=== PATIENT | female | born 1970 ===

== ENCOUNTER 2024-05-06 14:27 | Emergency (ER) | payer OTHER, SELFPAY ==
[2024-05-06 14:31] VITALS: BMI 36.6
--- NOTE | 2024-05-06 14:32 | ECG_ITS ---
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 Measurements Intervals [place] Rate: 69 P: 33 [place]: 160 QRS: 43 QRSD: 90 T: 53 QT: 392 QTc: 421 Interpretive Statements SINUS RHYTHM No previous ECG available for comparison Electronically Signed On 05-06-2024 19:11:53 CDT by Yissel Gee M.D. [id number]
--- NOTE | 2024-05-06 14:49 | XRR_ITS ---
PROCEDURE INFORMATION: Exam: XR Chest Exam date and time: 05/06/2024 3:06 PM Age: 53 years old Clinical indication: Pain; Chest pressure; Additional info: Chest pain TECHNIQUE: Imaging protocol: Radiologic exam of the chest. Views: 1 view. COMPARISON: No relevant prior studies available. FINDINGS: Lungs: Bibasilar atelectasis versus minimal infiltrate. Pleural spaces: Unremarkable. No pleural effusion. No pneumothorax. Heart/Mediastinum: Cardiomegaly and mild pulmonary vascular congestion. Bones/joints: Unremarkable. XR/XR chest 1V portable [id number] IMPRESSION: 1. Cardiomegaly and mild pulmonary vascular congestion. 2. Bibasilar atelectasis versus minimal infiltrate.
[2024-05-06 15:33] LABS: Basophils % 0.5 %; Eosinophils # 0.1 10^3/uL (0.0-0.8); Eosinophils % 2.3 %; Hematocrit 40.1 % (36-47); Lymphocytes # 1.8 10^3/uL (0.8-4.8); Lymphocytes % 31.5 %; Mean Corpuscular HGB Conc 31.2 g/dL (30-55); Mean Corpuscular Hemoglobin 26.9 pg (27-33); Mean Corpuscular Volume 86.2 fl (85-98); Mean Platelet Volume 12.2 fL (7.4-10.4); Monocytes # 0.5 10^3/uL (0.2-0.9); Monocytes % 8.4 %; Neutrophils # 3.25 10^3/uL (1.8-7.7); Neutrophils % 56.9 %; Nucleated Red Blood Cells % 0 %; Platelet Count 227 10^3/cmm (157-399); Red Blood Count 4.65 10^6/uL (3.85-5.65); White Blood Count 5.71 10^3/uL (3.29-11.43)
--- NOTE | 2024-05-06 15:33 | W.ED.CHESTPA ---
HPI - Chest Pain General: Chief Complaint: Chest Pain Stated Complaint: Chest Pain and SOB Time Seen by Provider: 05/06/24 15:19 History of Present Illness: 53-year-old woman with a history of obesity and prediabetes who presents emergency room with left-sided chest pain, cough and chills with subjective fevers. This is been going on for about 5 days now. She been more short of breath. No cardiac history. No smoking history. No COPD history. No altered mental status. No focal motor deficits. No nausea or vomiting. No abdominal pain. Review of Systems Narrative: Constitutional symptoms: Negative except as documented in HPI. Skin symptoms: Negative except as documented in HPI. Eye symptoms: Negative except as documented in HPI. ENMT symptoms: Negative except as documented in HPI. Respiratory symptoms: Negative except as documented in HPI. Cardiovascular symptoms: Negative except as documented in HPI. Gastrointestinal symptoms: Negative except as documented in HPI. Genitourinary symptoms: Negative except as documented in HPI. Musculoskeletal symptoms: Negative except as documented in HPI. Neurologic symptoms: Negative except as documented in HPI. Psychiatric symptoms: Negative except as documented in HPI. Endocrine symptoms: Negative except as documented in HPI. Physical Exam Narrative: EXAM NARRATIVE: General: Alert, no acute distress. Skin: Warm, dry. Head: Normocephalic, atraumatic. Neck: Supple, trachea midline. Eye: Extraocular movements are intact. Ears, nose, mouth and throat: mucosa moist. Cardiovascular: Regular, Normal peripheral perfusion. Respiratory: Lungs are clear to auscultation, respirations are non-labored, breath sounds are equal, Symmetrical chest wall expansion. Gastrointestinal: Soft, Nontender, Non distended Musculoskeletal: Normal ROM, no deformity. Neurological: Alert and oriented, No focal neurological deficit observed. Psychiatric: Cooperative, appropriate mood & affect. Course Vital Signs: Vital signs: Vital Signs Pulse Rate 72 05/06/24 15:42 Respiratory Rate 17 05/06/24 15:42 Blood Pressure 162/104 05/06/24 15:42 Pulse Oximetry 97 05/06/24 15:42 Oxygen Delivery Me thod Room Air 05/06/24 15:42 MDM - Chest Pain Medical Decision Making Differential diagnosis for patient with chest pain includes but is not limited to and based on the above HPI, review of systems and physical exam: Pneumonia. unstable angina. angina. Acute coronary syndrome / [place]. Pulmonary embolism. Costochondritis / musculoskeletal. Pleurisy. Pericarditis. Esophageal spasm. Pancreatis. Cholecystitis. Orders placed to evaluate differential diagnosis based on the above differential, HPI and physical exam Chest x-ray: No acute process. No infiltrate. No pneumothorax. This was reviewed and interpreted by myself the ER physician. Lab Review: Laboratory results were reviewed and interpreted by myself the emergency room physician. White count is 5. BUN and creatinine are 13 and 0.6. Troponin is negative. From history with her having chills and possible fevers and cough with some chest pain and will treat her for bronchitis and possible early community acquired bacterial pneumonia. I reviewed the patient's medical record. Reexamination: Patient remained stable. No increased work of breathing. No altered mental status. No focal motor deficits. Assessment and plan: Acute bronchitis Noncardiac chest pain ?IV doxycycline and IV Decadron in the emergency room. - Discharged home - Discussed findings and plan with patient. Answered any questions. - All laboratory values were reviewed and interpreted personally by myself, the ER physician - All imaging was reviewed and interpreted personally by myself, the ER physician. - Evaluation and treatment of this problem were appropriate in the emergency setting Lab Data 05/06/24 15:26 05/06/24 15:26 Laboratory Results WBC 5.71 10^3/uL (3.29-11.43) 05/06/24 15: RBC 4.65 10^6/uL (3.85-5.65) 05/06/24 15:26 Hgb 12.50 g/dL (11.27-16.99) 05/06/24 15: Hct 40.1 % (36-47) 05/06/24 15:26 MCV 86.2 fl (85-98) 05/06/24 15: MCH 26.9 pg (27-33) L 05/06/24 15: MCHC 31.2 g/dL (30-55) 05/06/24 15:26 RDW 15.0 % (12.1-15.1) 05/06/24 15:26 Plt Count 227 10^3/cmm (157-399) 05/06/24 15: MPV 12.2 fL (7.4-10.4) H 05/06/24 15:26 Neut % (Auto) 56.9 % 05/06/24 15:26 Lymph % (Auto) 31.5 % 05/06/24 15:26 [place] % (Auto) 8.4 % 05/06/24 15:26 Eos % (Auto) 2.3 % 05/06/24 15:26 Baso % (Auto) 0.5 % 05/06/24 15:26 Neut # (Auto) 3.25 10^3/uL (1.8-7.7) 05/06/24 15:26 Lymph # (Auto) 1.8 10^3/uL (0.8-4.8) 05/06/24 15:26 [place] # (Auto) 0.5 10^3/uL (0.2-0.9) 05/06/24 15: Eos # (Auto) 0.1 10^3/uL (0.0-0.8) 05/06/24 15:26 Baso # (Auto) 0.0 10^3/uL (0.0-0.1) 05/06/24 15:26 Nucleated RBC % (auto) 0 % 05/06/24 15: Nucleated RBCs # 0.0 /100WBC 05/06/24 15:26 Sodium 140 mmol/L (136-145) 05/06/24 15:26 Potassium 4.1 mmol/L (3.5-5.1) 05/06/24 15:26 Chloride 103 mmol/L (98-107) 05/06/24 15: Carbon Dioxide 26 mmol/L (22-29) 05/06/24 15:26 Anion Gap 15.1 (5-19) 05/06/24 15:26 BUN 13 mg/dL (6-20) 05/06/24 15:26 Creatinine 0.6 mg/dL (0.5-0.9) 05/06/24 15:26 GFR Calculation 105.0 mL/min (90-130) 05/06/24 15:26 Glucose 96 mg/dL (65-115) 05/06/24 15:26 Calculated Osmolality 290 mOsm/kg (285-295) 05/06/24 15:26 Calcium 9.1 mg/dL (8.5-10.5) 05/06/24 15:26 Total Bilirubin 0.4 mg/dL (0.15-1.2) 05/06/24 15:26 AST 12 U/L (0-32) 05/06/24 15:26 ALT 18 U/L (0-33) 05/06/24 15:26 Alkaline Phosphatase 83 U/L (35-105) 05/06/24 15:26 Troponin T Baseline < 6 ng/L (0-10) 05/06/24 15:26 Total Protein 7.2 g/dL (6.6-8.7) 05/06/24 15:26 Albumin 4.2 g/dL (3.5-5.2) 05/06/24 15:26 Globulin 3.0 g/dL (1.3-4.6) 05/06/24 15:26 Lipase 25 U/L (13-60) 05/06/24 15:26 Urine Color Yellow (Yellow) 05/06/24 15:38 Urine Appearance Slightly cloudy (CLEAR) 05/06/24 15:38 Urine pH 7 (5-7) 05/06/24 15:38 Ur Specific [place] 1.010 (1.005-1.030) 05/06/24 15:38 Urine Protein Neg (Negative) 05/06/24 15:38 Urine Glucose (UA) Norm (Normal) 05/06/24 15:38 Urine Ketones Negative (Negative) 05/06/24 15:38 Urine Blood Neg (Negative) 05/06/24 15:38 Urine Nitrate Negative (Negative) 05/06/24 15:38 Urine Bilirubin Neg (Negative) 05/06/24 15:38 Urine Urobilinogen 1 mg/dL (Negative) H 05/06/24 15:38 Ur Leukocyte Esterase Negative (Negative) 05/06/24 15:38 All radiology interpretation(s) finalized by discharge Discharge Plan Discharge Patient Disposition: Home Clinical Impression: Non-cardiac chest pain Acute bronchitis Qualifiers: Bronchitis organism: unspecified organism Qualified Code(s): J20.9 - Acute bronchitis, unspecified Condition: Stable Prescriptions: New dexamethasone 6 mg tablet 6 mg PO DAILY 5 Days Qty: 5 0RF doxycycline monohydrate 100 mg capsule 100 mg PO BID 10 Days Qty: 20 0RF Discharge Orders: Discharge ED (Routine); Ordered 05/06/24 Ordered By: Gin Lamb Discharge Diet: Usual diet Discharge Activity: Increase activity as tolerated Patient Instructions: Acute Bronchitis (ED) Activity Restrictions/Additional Instructions: Thank you for choosing [facility] for your healthcare needs today. Please realize this is an emergency room and that we are providing you with a medical screening exam and this may not be complete and all inclusive of all the testing and or work up that you may need to determine your ailment or severity of your illness. You have been screened and evaluated and felt safe for discharge. Health conditions do change or evolve sometimes and as such it is important that you follow up with your Primary Doctor to be re checked, 3-5 days is a general good time frame for follow up. You are always welcome to return to the ED for re assessment if your symptoms are worsening or you have new concerns Coding Level of Care Code ED [employer] Service Director for [place]
[2024-05-06 15:42] VITALS: BP 162/104; PULSE 72; RESP 17; O2SAT 97
[2024-05-06 15:47] LABS: Add Urine Microscopic? NO; Charge for UA Resulting for Rev
[2024-05-06 15:51] LABS: Alanine Aminotransferase 18 U/L (0-33); Albumin Level 4.2 g/dL (3.5-5.2); Alkaline Phosphatase 83 U/L (35-105); Anion Gap 15.1 (5-19); Aspartate Amino Transferase 12 U/L (0-32); Blood Urea Nitrogen 13 mg/dL (6-20); Calcium 9.1 mg/dL (8.5-10.5); Carbon Dioxide 26 mmol/L (22-29); Chloride 103 mmol/L (98-107); Creatinine Clr Calc Pharmacy 146.6849; Glucose 96 mg/dL (65-115); Lipase 25 U/L (13-60); Osmolality Calculated 290 mOsm/kg (285-295); Potassium 4.1 mmol/L (3.5-5.1); Sodium 140 mmol/L (136-145); Total Bilirubin 0.4 mg/dL (0.15-1.2); Total Protein 7.2 g/dL (6.6-8.7)
[2024-05-06 15:52] LABS: Troponin(5th) Baseline < 6 ng/L (0-10)
[2024-05-06 15:52] LABS: Urine Color Yellow (Yellow)
[2024-05-06 15:53] LABS: Bilirubin Urine Neg (Negative); Blood Urine Neg (Negative); Glucose Urine UA Norm (Normal); Ketones Urine Negative (Negative); Leukocyte Esterase Urine Negative (Negative); Nitrate Urine Negative (Negative); Protein Urine Neg (Negative); Urine Appearance Slightly Cloudy (CLEAR); Urobilinogen Urine 1 mg/dL (Negative); pH Urine 7 (5-7)
[2024-05-06] MEDS: dexamethasone 10 mg/mL INJ IVP (16:32)
[2024-05-06] MEDS: doxycycline 100 MG in sodium chloride 0.9% (plus) 100 ML IV (16:39)
--- NOTE | 2024-05-06 16:41 | ECG_ITS ---
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 Measurements Intervals [place] Rate: 62 P: 34 [place]: 165 QRS: 35 QRSD: 93 T: 33 QT: 414 QTc: 421 Interpretive Statements SINUS RHYTHM Compared to ECG 05/06/2024 14:32:20 No significant changes Electronically Signed On 05-06-2024 19:22:00 CDT by Yissel Gee M.D. [id number]
[2024-05-06 17:58] VITALS: BP 119/79; RESP 18; O2SAT 95
== END 2024-05-06 17:59 | disposition home or self-care (01) ==
PROVIDERS: Nurse Practitioner Family; Emergency Provider Emergency Medicine
DX: J20.9 Acute bronchitis, unspecified (principal); R07.89 Other chest pain
CPT/HCPCS: 36415; 71045; 80053; 81003; 83690; 84484; 85025; 93005; 96374; 96375; 99285; J1100; J3490